=== PATIENT | female | born 1995 | race Caucasian/White ===

== ENCOUNTER 2025-07-17 19:16 | Observation (INO) ==
[2025-07-17 19:39] LABS: Hematocrit (blood only) 40.5 % (37.0-47.0); Hemoglobin 13.6 g/dL (12.0-16.0); Immature Granulocytes # (auto) 0.03 K/uL (0.01-0.20); Immature Granulocytes % (auto) 0.3 %; Mean Corpuscular Hemoglobin 32.5 pg (25.0-34.0); Mean Corpuscular Volume 96.9 fL (80.0-100.0); Platelet Count 316 K/uL (130-400); RDW Standard Deviation 45.4 fL (36.4-46.3); Red Blood Count 4.18 M/uL (4.20-5.40); White Blood Count 11.05 K/ul (4.8-10.8)
[2025-07-17 19:55] LABS: Alanine Aminotransferase 25.0 U/L (7-52); Albumin Globulin Ratio 1.8 (0.9-2); Albumin Level 4.5 gm/dl (3.4-5.0); Alkaline Phosphatase 52.0 U/L (34-104); Anion Gap 7.0 (3-11); Bilirubin,Total 0.6 mg/dl (0.2-1.0); Blood Urea Nitrogen 9.0 mg/dl (6-23); Calcium 9.4 mg/dl (8.6-10.3); Carbon Dioxide 29.0 mmol/L (21-32); Chloride 103.0 mmol/L (98-107); Creatinine Clr Calc Pharmacy 96.3 ml/min; Globulin 2.5 gm/dl (2.5-4.0); Glucose 90.0 mg/dl (70-99(Fasting)); Potassium 3.7 mmol/L (3.5-5.1); Sodium 139.0 mmol/L (136-145); Total Protein 7.0 gm/dl (6.0-8.3)
[2025-07-17 22:06] LABS: Creatine Kinase 75.0 U/L (26-192)
[2025-07-17] MEDS: HYDROCORTISONE SOD SUCCINATE 100 MG/2 ML VIAL IV STA (22:06)
[2025-07-17 22:12] LABS: Pregnancy Test, Serum Negative (Negative)
[2025-07-17 22:21] LABS: Thyroid Stimulating Hormone 2.178 uIu/ml (0.300-4.500)
[2025-07-17 22:31] LABS: Appearance Urine Clear (Clear); Glucose Urine UA Negative (Negative)
--- NOTE | 2025-07-17 23:13 | Emergency Department Note ---
History of Present Illness General Chief complaint: Leg Weakness, Bilateral Stated complaint: LEG WEAKNESS (BILATERAL), MUSCLE JERKS, SINCE YEST Time Seen by Provider: 07/17/25 21:24 History of Present Illness Maximum Pain Intensity: 8 This 29-year-old female with a past medical history of Iron (Fe) deficiency anemia, Vitamin D deficiency, Depression with anxiety, Chronic pain, Fibromyalgia, Raynaud disease, ADHD, Borderline personality disorder Vitamin B12 deficiency, Isolated ACTH deficiency, Secondary adrenal insufficiency, Hypothyroidism, Reactive hypoglycemia, Fatigue presents ER complaining of low back pain bilateral leg weakness for the past week. Symptoms have come and gone. She went to [facility] with no clear etiology for her symptoms. She last took a stress dose of her steroids 1 week ago. Nothing today for the acute onset of symptoms. Patient denies trauma, fever, chills, flulike illness. Home Medications Medication Instructions Recorded Confirmed Type ropinirole 2 mg tablet 2 mg PO BID 10/05/23 01/28/25 History tizanidine 4 mg capsule 8 mg PO HS 10/05/23 01/28/25 History methylphenidate HCl 20 mg tablet 20 mg PO TID 10/13/23 01/28/25 History lamotrigine 150 mg tablet 150 mg PO DAILY 01/05/24 01/28/25 History (Lamictal) 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,general pediatrician,cont #1 ea 01/31/24 01/28/25 Rx (FreeStyle Janette 3 [place]) dicyclomine 10 mg capsule 10 mg PO BID PRN abdominal pain 02/20/24 01/28/25 History medical marijuana .Route 02/20/24 01/28/25 History ondansetron HCl 8 mg tablet 8 mg PO TID PRN nausea and vomiting 02/20/24 01/28/25 History polydextrose 1.5 gram chewable g PO 02/20/24 01/28/25 History tablet (Childrens Fiber Gummy Bear) sennosides 8.6 mg capsule (senna) 8.6 mg PO BID PRN constipation 02/20/24 01/28/25 History cyanocobalamin (vitamin B-12) 1,000 mcg subcut .COMPLEX #1 ea 04/30/24 01/28/25 Rx 1,000 mcg/mL injection kit gabapentin 800 mg tablet 800 mg PO TID #90 tabs 04/30/24 01/28/25 Rx fluticasone propionate 50 See Rx Instructions .Route 05/23/24 01/28/25 Rx mcg/actuation nasal .COMPLEX #48 mL spray,suspension docusate sodium 100 mg capsule See Rx Instructions .Route 06/17/24 01/28/25 Rx .COMPLEX #30 caps cariprazine 1.5 mg capsule 3 mg PO DAILY 07/12/24 01/28/25 History (Vraylar) lorazepam 0.5 mg tablet (Ativan) 1 mg (2 x 0.5 mg) PO ONCE PRN 07/18/24 01/28/25 Rx anxiety #2 tabs venlafaxine 150 mg 100 mg PO DAILY 09/06/24 01/28/25 History capsule,extended release 24 hr (Effexor XR) chlorpromazine 25 mg tablet 25 mg PO Q6H PRN 11/27/24 01/28/25 History FreeStyle Janette 3 Sensor #6 ea 12/26/24 01/28/25 Rx (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 sensor) glucagon 3 mg/actuation nasal spray 3 mg intranasal ONCE #2 ea 12/26/24 01/28/25 Rx levothyroxine 50 mcg tablet 50 mcg PO DAILY #30 tabs 05/20/25 Rx prednisone 5 mg tablet 5 mg PO DAILY #30 tabs 06/13/25 Rx Allergies Allergy/AdvReac Type Severity Reaction Status Date / Time buspirone [From BuSpar] Allergy Verified 01/28/25 11:52 celecoxib [From Celebrex] Allergy Verified 01/28/25 11:52 duloxetine [From Cymbalta] Allergy Verified 01/28/25 11:52 polymyxin B [From Polytrim] Allergy Verified 01/28/25 11:52 quetiapine [From Seroquel] Allergy Verified 01/28/25 11:52 trazodone Allergy Verified 01/28/25 11:52 trimethoprim [From Polytrim] Allergy Verified 01/28/25 11:52 varenicline [From Chantix] Allergy Verified 01/28/25 11:52 Sulfa (Sulfonamide AdvReac Unknown Redness of Verified 01/28/25 11:52 Antibiotics) Skin Past Med/Surg History Problem List (Updated 07/18/25 @ 03:43 by Irma Sanchez PA-C) Bilateral leg numbness (Acute) Bilateral leg weakness (Acute) Acute bilateral low back pain (Acute) Iron (Fe) deficiency anemia Vitamin D deficiency Depression with anxiety Chronic pain Fibromyalgia Raynaud disease ADHD Borderline personality disorder Vitamin B12 deficiency Isolated ACTH deficiency Secondary adrenal insufficiency Hypothyroidism Reactive hypoglycemia Fatigue Medical History (Updated 07/18/25 @ 03:43 by Irma Sanchez PA-C) History of gastrectomy Surgical History (Updated 02/20/24 @ 14:44 by DEVORAH Barillas) S/P total gastrectomy and Gurwinder-en-Y esophagojejunal anastomosis S/P cholecystectomy S/P tonsillectomy and adenoidectomy S/P wisdom tooth extraction History of breast reconstruction History of bilateral mastectomy Family History Mother Breast cancer Stomach cancer Denies family history of Ovarian cancer Prostate cancer Myocardial infarction Colorectal cancer Social History (Updated 02/20/24 @ 14:47 by DEVORAH Barillas) Smoking Status: Current every day smoker Tobacco Type: E-cigarettes / Vaping Age Started Using Tobacco: 14; Age Quit Using Tobacco: 23; Second Hand Exposure: Yes; Do You Dip or Chew Tobacco: No; Hx Alcohol Use: Yes Alcohol type: wine Alcohol type Comment: social Alcohol Intake Frequency: Monthly or Less Hx Substance Use: Yes Prescribed Medications: Marijuana Preferred Language: [place] Communication Ability: Effective Visual Impairment: No Limitations Hearing Ability: Normal marital status: Single Current Living Situation: Parent current occupational status: unemployed Feels Safe at Home: Yes Childhood Exposure to Second-Hand Smoke: No Diet: regular caffeine: Yes Dental Care, Regularly: Yes Physical Activity Frequency: Does not Exercise Seatbelt Use: always Sunscreen Use: Yes Review of Systems A total of 10 systems reviewed and were otherwise negative Physical Exam Vital Signs Vital Signs - 24 hr 07/17/25 19:20 07/17/25 20:30 07/17/25 21:06 Temperature 36.3 C L Temperature Source Temporal Artery Scan Pulse Rate 77 67 Pulse Rate [Apical] 62 Pulse Rate from SpO2 Sensor Pulse Rhythm [Apical] Regular Pulse Strength [Apical] Normal Respiratory Rate 16 24 Respiratory Effort / Characteristics Non-Labored Spontaneous Non-Labored Spontaneous Respiratory Depth Normal Normal Respiratory Pattern Regular Regular Blood Pressure 132/88 Blood Pressure [Left Arm] 116/85 Blood Pressure Mean 102 Blood Pressure Mean [Left Arm] 95 Blood Pressure Position [Left Arm] Pulse Oximetry 98 99 Oxygen Delivery Method Room Air Room Air Sepsis Recent Fever Within 48 Hours No Sepsis New/Unexplained Change in Mental Status N/A Sepsis Action Taken by Nursing No Action Required 07/17/25 23:00 07/18/25 00:30 07/18/25 00:30 Temperature Temperature Source Pulse Rate 82 Pulse Rate [Apical] 68 79 Pulse Rate from SpO2 Sensor Pulse Rhythm [Apical] Pulse Strength [Apical] Respiratory Rate 23 17 Respiratory Effort / Characteristics Non-Labored Spontaneous Non-Labored Spontaneous Respiratory Depth Respiratory Pattern Regular Regular Blood Pressure Blood Pressure [Left Arm] 99/74 L 133/85 Blood Pressure Mean Blood Pressure Mean [Left Arm] 82 101 Blood Pressure Position [Left Arm] Lying Lying Pulse Oximetry 98 99 Oxygen Delivery Method Room Air Room Air Sepsis Recent Fever Within 48 Hours Sepsis New/Unexplained Change in Mental Status Sepsis Action Taken by Nursing 07/18/25 01:00 07/18/25 02:00 Temperature Temperature Source Pulse Rate 107 H Pulse Rate [Apical] 98 H Pulse Rate from SpO2 Sensor 120 H Pulse Rhythm [Apical] Pulse Strength [Apical] Respiratory Rate 22 23 Respiratory Effort / Characteristics Non-Labored Spontaneous Respiratory Depth Respiratory Pattern Regular Blood Pressure 127/94 Blood Pressure [Left Arm] 138/88 Blood Pressure Mean 105 Blood Pressure Mean [Left Arm] 104 Blood Pressure Position [Left Arm] Lying Pulse Oximetry 94 94 Oxygen Delivery Method Room Air Room Air Sepsis Recent Fever Within 48 Hours Sepsis New/Unexplained Change in Mental Status Sepsis Action Taken by Nursing VITALS: Vitals are noted on the nurse's note and reviewed by myself. Vital signs stable. GENERAL: Pleasant female, in no acute distress, nondiaphoretic, well-developed well-nourished. SKIN: Capillary reflex less than 2 seconds. HEENT: Normocephalic. PERRLA. EOMI. Nares patent. Mucous membranes moist. Neck is supple without nuchal rigidity. HEART: Regular rate and rhythm LUNGS: Clear to auscultation bilaterally without wheezes, rales or rhonchi. No retractions or accessory muscle use. ABDOMEN: Positive bowel sounds x 4. Normal tympanic percussion. Soft, nontender, without masses or organomegaly. Emerson sign negative. No guarding or rebound tenderness. no CVA tenderness MUSCULOSKELETAL: No gross musculoskeletal defects. No thoracic or lumbar tenderness. 5 out of 5 strength throughout. Patient plantarflex and dorsiflex. Sensation is intact. NEURO: Patient was alert and oriented to person place and time. No focal neurological deficits. Course Administered Medications Discontinued Medications Droperidol (Droperidol 5 Mg/2 Ml Vial) 1.25 mg IV ONE STA Stop: 07/18/25 00:55 Last Admin: 07/18/25 01:34 Dose: Not Given Documented By: CALLY Gadobutrol (Gadobutrol 65ml Vial) 5.5 ml IV ONCE ONE Stop: 07/18/25 03:44 Last Admin: 07/18/25 03:43 Dose: 5.5 ml Documented By: DESTINEE Hydrocortisone Sodium Succinate (Hydrocortisone Sod Succinate 100 Mg/2 Ml Vial) 100 mg IV NOW STA Stop: 07/17/25 21:48 Last Admin: 07/17/25 22:06 Dose: 100 mg Documented By: monica Acetaminophen (Ofirmev) 1,000 mg in 100 mls @ 400 mls/hr IV NOW STA Stop: 07/18/25 01:33 Last Infusion: 07/18/25 01:55 Dose: Infused Documented By: Admin: 07/18/25 01:31 Dose: 400 mls/hr Documented By: CALLY Lorazepam (Lorazepam 1 Mg/1 Ml Syr Ed Inj Use) 1 mg IV ONE STA Stop: 07/17/25 23:04 Last Admin: 07/17/25 23:43 Dose: 1 mg Documented By: CALLY Lorazepam (Lorazepam 1 Mg/1 Ml Syr Ed Inj Use) 1 mg IV ONE STA Stop: 07/18/25 00:32 Last Admin: 07/18/25 00:42 Dose: 1 mg Documented By: CALLY Morphine Sulfate (Morphine Sulfate 4 Mg/Ml 1 Ml Carp\Vial) 4 mg IV NOW STA Stop: 07/18/25 01:20 Last Admin: 07/18/25 01:31 Dose: 4 mg Documented By: CALLY Medical Decision Making Medical Records Attestation: I reviewed the patient's medical records. Home Medications Current Medication List: was personally reviewed by me Laboratory Data Attestation: I reviewed the patient's lab results. 07/17/25 19:25 07/17/25 19:25 Lab Results 07/17/25 07/17/2525 Range/Units 19:25 19:25 19:25 WBC 11.05 H (4.8-10.8) K/ul RBC 4.18 L (4.20-5.40) M/uL Hgb 13.6 (12.0-16.0) g/dL Hct 40.5 (37.0-47.0) % MCV 96.9 (80.0-100.0) fL MCH 32.5 (25.0-34.0) pg MCHC 33.6 (32.0-36.0) g/dL RDW Std Deviation 45.4 (36.4-46.3) fL RDW Coeff of Estela 12.7 (11.5-14.5) % Plt Count 316 (130-400) K/uL MPV 9.6 (9.4-12.4) fL Immature Gran % (Auto) 0.3 % Neut % (Auto) 60.4 % Lymph % (Auto) 31.9 % [place] % (Auto) 6.2 % Eos % (Auto) 0.7 % Baso % (Auto) 0.5 % Neut # (Auto) 6.68 H (1.40-6.50) K/uL Lymph # (Auto) 3.52 H (1.20-3.40) K/uL [place] # (Auto) 0.68 H (0.11-0.59) K/uL Eos # (Auto) 0.08 (0.00-0.50) K/uL Baso # (Auto) 0.06 (0.00-0.20) K/uL Immature Gran # (Auto) 0.03 (0.01-0.20) K/uL Sodium 139 (136-145) mmol/L Potassium 3.7 (3.5-5.1) mmol/L Chloride 103 (98-107) mmol/L Carbon Dioxide 29 (21-32) mmol/L Anion Gap 7 (3-11) BUN 9 (6-23) mg/dl Creatinine 0.75 (0.6-1.2) mg/dl Est Cr Clr Drug Dosing 96.3 ml/min eGFR 111.14 BUN/Creatinine Ratio 12.0 (10-20) Glucose 90 (70-99(Fasting)) mg/dl Calcium 9.4 (8.6-10.3) mg/dl Total Bilirubin 0.6 (0.2-1.0) mg/dl AST 18 (13-39) U/L ALT 25 (7-52) U/L Alkaline Phosphatase 52 (34-104) U/L Total Creatine Kinase 75 (26-192) U/L Total Protein 7.0 (6.0-8.3) gm/dl Albumin 4.5 (3.4-5.0) gm/dl Globulin 2.5 (2.5-4.0) gm/dl Albumin/Globulin Ratio 1.8 (0.9-2) TSH 2.178 (0.300-4.500) uIu/ml HCG, Qual Negative (Negative) Urine Color Urine Appearance (Clear) Urine pH (4.5-7.5) Ur Specific [place] (1.000-1.030) Urine Protein (Negative) Urine Glucose (UA) (Negative) Urine Ketones (Negative) Urine Blood (Negative) Urine Nitrite (Negative) Urine Bilirubin (Negative) Urine Urobilinogen (Negative) Ur Leukocyte Esterase (Negative) Urine Comment Anaplasma Smear See Comment Cancelled Babesia Smear See Comment Cancelled Lyme Disease Screen Negative (Negative) 07/17/25 Range/Units 22:13 WBC (4.8-10.8) K/ul RBC (4.20-5.40) M/uL Hgb (12.0-16.0) g/dL Hct (37.0-47.0) % MCV (80.0-100.0) fL MCH (25.0-34.0) pg MCHC (32.0-36.0) g/dL RDW Std Deviation (36.4-46.3) fL RDW Coeff of Estela (11.5-14.5) % Plt Count (130-400) K/uL MPV (9.4-12.4) fL Immature Gran % (Auto) % Neut % (Auto) % Lymph % (Auto) % [place] % (Auto) % Eos % (Auto) % Baso % (Auto) % Neut # (Auto) (1.40-6.50) K/uL Lymph # (Auto) (1.20-3.40) K/uL [place] # (Auto) (0.11-0.59) K/uL Eos # (Auto) (0.00-0.50) K/uL Baso # (Auto) (0.00-0.20) K/uL Immature Gran # (Auto) (0.01-0.20) K/uL Sodium (136-145) mmol/L Potassium (3.5-5.1) mmol/L Chloride (98-107) mmol/L Carbon Dioxide (21-32) mmol/L Anion Gap (3-11) BUN (6-23) mg/dl Creatinine (0.6-1.2) mg/dl Est Cr Clr Drug Dosing ml/min eGFR BUN/Creatinine Ratio (10-20) Glucose (70-99(Fasting)) mg/dl Calcium (8.6-10.3) mg/dl Total Bilirubin (0.2-1.0) mg/dl AST (13-39) U/L ALT (7-52) U/L Alkaline Phosphatase (34-104) U/L Total Creatine Kinase (26-192) U/L Total Protein (6.0-8.3) gm/dl Albumin (3.4-5.0) gm/dl Globulin (2.5-4.0) gm/dl Albumin/Globulin Ratio (0.9-2) TSH (0.300-4.500) uIu/ml HCG, Qual (Negative) Urine Color Yellow Urine Appearance Clear (Clear) Urine pH 7.5 (4.5-7.5) Ur Specific [place] 1.010 (1.000-1.030) Urine Protein Negative (Negative) Urine Glucose (UA) Negative (Negative) Urine Ketones Negative (Negative) Urine Blood Negative (Negative) Urine Nitrite Negative (Negative) Urine Bilirubin Negative (Negative) Urine Urobilinogen Negative (Negative) Ur Leukocyte Esterase Negative (Negative) Urine Comment Anaplasma Smear Babesia Smear Lyme Disease Screen (Negative) Imaging Data Attestation: I personally reviewed and interpreted this imaging study as follows: Radiologist's Impression: Lumbar Spine MRI 07/17/25 21:47 EXAM: MR lumbar spine wo/w con CLINICAL HISTORY: B leg weakness TECHNIQUE: Different pulse sequences were performed in different planes for the lumbar spine with and without contrast. Images were sent through PACs for diagnostic interpretation. COMPARISON: No previous studies are available for comparison. FINDINGS: Vertebral Alignment: Loss of lumbar lordosis. Normal alignment of the lumbar spine without evidence of fracture or malalignment. Marrow signals are normal. Vertebral Bodies and Intervertebral Discs: Normal vertebral body height, no fracture identified. No lytic or sclerotic lesions. Disc desiccation of L3-L4 and L4-L5 intervertebral disc. [id number] analysis: T12-L1: There is no focal disc pathology, spinal canal stenosis, or neural foraminal stenosis. L1-L2: There is no focal disc pathology, spinal canal stenosis, or neural foraminal stenosis. L2-L3: There is no focal disc pathology, spinal canal stenosis, or neural foraminal stenosis. L3-L4: Diffuse disc herniation with left sided propensity along with left foraminal annular tear, causes effacement of left neural foramina and abutting left exiting nerve root. L4-L5: Diffuse disc bulge with central disc protrusion and annular tear. It causes mild effacement of bilateral lateral recesses and neural foramina which indenting ventral thecal sac and indenting bilateral traversing and abutting bilateral exiting nerve root. L5-S1: There is no focal disc pathology, spinal canal stenosis, or neural foraminal stenosis. Spinal Cord and Nerve Roots: Conus medullaris terminates at the L1 level without abnormality. Soft Tissues: Paraspinal soft tissues appear normal . IMPRESSION: L3-L4: Diffuse disc herniation with left sided propensity along with left foraminal annular tear, causes effacement of left neural foramina and abutting left exiting nerve root. L4-L5: Diffuse disc bulge with central disc protrusion and annular tear. It causes mild effacement of bilateral lateral recesses and neural foramina which indenting ventral thecal sac and indenting bilateral traversing and abutting bilateral exiting nerve root. No other abnormality seen. Electronically signed by Amari Polanco 07-18-2025 04:32 AM MDM Narrative Prior records/ancillary studies reviewed. Triage Nursing notes reviewed. Additional history obtained from nursing. The patient's history was concerning for back pain. Differential diagnosis: Etiologies such as musculoskeletal, disc herniation, fracture, aortic disease, metastatic disease, cord compression, discitis, infection, renal colic, gastrointestinal, acute exacerbation of chronic back pain, sciatica, cauda equina, as well as others were entertained. Physical findings: As above. ER treatment provided: Hydrocortisone was ordered for history of adrenal insufficiency with new onset of leg weakness, Ativan was ordered Morphine and fentanyl were ordered for patient's pain, Tylenol was ordered On reassessment the patient felt better. Diagnostics interpreted by me: The labs Independently Interpreted by myself revealed mild leukocytosis Euthyroid, negative hCG, negative urine Negative Lyme's Imaging studies: Imaging was reviewed and read by radiology Consultation: A consultation was placed with the hospitalist. The case was discussed and diagnostics were reviewed. Patient will be evaluated for admission. This appears to be consistent with low back pain with leg weakness with unclear etiology. Patient was still in moderate amount of pain. Patient has adrenal insufficiency and was given a stress dose for her acute onset of leg weakness. Imaging was reviewed and read by radiology. Stable labs. Medicine was consulted case discussed. She will be evaluated for possible admission. By the evaluation outlined above emergent etiologies such as fracture, aortic disease, metastatic disease, infection, renal colic, gastrointestinal, cord compression, cauda equina, as well as others were deemed relatively unlikely. The pt informed about the findings as listed above. All questions were answered and pleased with the treatment. The chart was completed utilizing [employer] Speech voice recognition software. Grammatical errors, random word insertions, pronoun errors, and incomplete sentences are an occassional consequence of this system due to software limitations, ambient noise, and hardware issues. Any formal questions or concerns about the content, text, or information contained within the body of this dictation should be directly addressed to the physician personnel security assistant for clarification. Impression & Plan Acute bilateral low back pain, Bilateral leg weakness, Bilateral leg numbness Discharge Plan Visit Data Chief Complaint: Leg Weakness, Bilateral Stated Complaint: LEG WEAKNESS (BILATERAL), MUSCLE JERKS, SINCE YEST ED Provider: Dillon Christian ED Midlevel Provider: Irma Sanchez Discharge Problem: Acute bilateral low back pain, Bilateral leg weakness, Bilateral leg numbness Patient Disposition: Being Evaluated by Hospitalist Condition: Good Forms Stand Alone Forms: My Ez[employer] Prescriptions Prescriptions: No Action gabapentin 800 mg tablet 800 mg PO TID Qty: 90 1RF cyanocobalamin (vitamin B-12) 1,000 mcg/mL kit 1,000 mcg subcut .COMPLEX Qty: 1 0RF Rx Instructions: 1,000 mcg subcutaneously MONTHLY; fluticasone propionate 50 mcg/actuation spray,suspension See Rx Instructions .ROUTE .COMPLEX Qty: 48 0RF Dose Instruction: SPRAY 1 SPRAY IN EACH NOSTRIL DAILY Rx Instructions: SPRAY 1 SPRAY IN EACH NOSTRIL DAILY docusate sodium 100 mg capsule See Rx Instructions .ROUTE .COMPLEX Qty: 30 1RF Dose Instruction: TAKE 1 CAPSULE BY MOUTH DAILY NEEDED FOR CONSTIPATION Rx Instructions: TAKE 1 CAPSULE BY MOUTH DAILY NEEDED FOR CONSTIPATION lorazepam [Ativan] 0.5 mg tablet 1 mg PO ONCE PRN (Reason: anxiety) Qty: 2 0RF glucagon 3 mg/actuation spray,non-aerosol 3 mg intranasal ONCE Qty: 2 6RF Rx Instructions: To be used in instances of emergency hypoglycemia. (DME) FreeStyle Janette 3 Sensor Device See Rx Instructions .Route Qty: 6 3RF Rx Instructions: Change sensor every 14 days levothyroxine 50 mcg tablet 50 mcg PO DAILY Qty: 30 4RF Rx Instructions: Take one tablet by mouth 30-45 minutes before any other oral intake. prednisone 5 mg tablet 5 mg PO DAILY Qty: 30 5RF Rx Instructions: Take one tablet by mouth once a day. medical marijuana .Route Rx Instructions: use as directed per pt uses, RSO she adds to food or gummies. senna 8.6 mg capsule 8.6 mg PO BID PRN (Reason: constipation) ondansetron HCl 8 mg tablet 8 mg PO TID PRN (Reason: nausea and vomiting) dicyclomine 10 mg capsule 10 mg PO BID PRN (Reason: abdominal pain) Childrens Fiber Gummy Bear 1.5 gram tablet,chewable PO (DME) FreeStyle Janette 3 [place] Misc See Rx Instructions .Route Qty: 1 3RF Rx Instructions: use to monitor blood sugars daily chlorpromazine 25 mg tablet 25 mg PO Q6H PRN tizanidine 4 mg capsule 8 mg PO HS ropinirole 2 mg tablet 2 mg PO BID methylphenidate HCl 20 mg tablet 20 mg PO TID venlafaxine [Effexor XR] 150 mg capsule,extended release 24hr 100 mg PO DAILY lamotrigine [Lamictal] 150 mg Tablet 150 mg PO DAILY Vraylar 1.5 mg capsule 3 mg PO DAILY Referrals Referrals: Sadi Ray CRNP [Primary Care Provider] - Discharge Problem: Acute bilateral low back pain Qualifiers: Sciatica presence: unspecified whether sciatica present Qualified Code(s): M 54.50 - Low back pain, unspecified
[2025-07-17] MEDS: LORazepam 1 MG/1 ML SYR ED Inj Use IV STA (23:43)
[2025-07-18] MEDS: LORazepam 1 MG/1 ML SYR ED Inj Use IV STA (00:42)
[2025-07-18] MEDS: MoRPHine SULFATE 4 MG/ML 1 ML CARP\\VIAL IV STA (01:31)
[2025-07-18] MEDS: ACETAMINOPHEN 1,000 MG/100 ML VIAL IV STA (01:31)
[2025-07-18] MEDS: DROPERIDOL 5 MG/2 ML VIAL IV STA (01:34)
[2025-07-18] MEDS: GADOBUTROL 65ML VIAL IV ONE (03:43)
--- NOTE | 2025-07-18 04:32 | Magnetic Resonance Report ---
EXAM: MR lumbar spine wo/w con CLINICAL HISTORY: B leg weakness TECHNIQUE: Different pulse sequences were performed in different planes for the lumbar spine with and without contrast. Images were sent through PACs for diagnostic interpretation. COMPARISON: No previous studies are available for comparison. FINDINGS: Vertebral Alignment: Loss of lumbar lordosis. Normal alignment of the lumbar spine without evidence of fracture or malalignment. Marrow signals are normal. Vertebral Bodies and Intervertebral Discs: Normal vertebral body height, no fracture identified. No lytic or sclerotic lesions. Disc desiccation of L3-L4 and L4-L5 intervertebral disc. [id number] analysis: T12-L1: There is no focal disc pathology, spinal canal stenosis, or neural foraminal stenosis. L1-L2: There is no focal disc pathology, spinal canal stenosis, or neural foraminal stenosis. L2-L3: There is no focal disc pathology, spinal canal stenosis, or neural foraminal stenosis. L3-L4: Diffuse disc herniation with left sided propensity along with left foraminal annular tear, causes effacement of left neural foramina and abutting left exiting nerve root. L4-L5: Diffuse disc bulge with central disc protrusion and annular tear. It causes mild effacement of bilateral lateral recesses and neural foramina which indenting ventral thecal sac and indenting bilateral traversing and abutting bilateral exiting nerve root. L5-S1: There is no focal disc pathology, spinal canal stenosis, or neural foraminal stenosis. Spinal Cord and Nerve Roots: Conus medullaris terminates at the L1 level without abnormality. Soft Tissues: Paraspinal soft tissues appear normal . IMPRESSION: L3-L4: Diffuse disc herniation with left sided propensity along with left foraminal annular tear, causes effacement of left neural foramina and abutting left exiting nerve root. L4-L5: Diffuse disc bulge with central disc protrusion and annular tear. It causes mild effacement of bilateral lateral recesses and neural foramina which indenting ventral thecal sac and indenting bilateral traversing and abutting bilateral exiting nerve root. No other abnormality seen. Electronically signed by Amari Polanco 07-18-2025 04:32 AM
--- NOTE | 2025-07-18 05:21 | History & Physical Report ---
Date of Service July 18, 2025 Assessment & Plan (1) Acute back pain: (2) Lumbar disc herniation: Plan 29-year-old female PMHx reactive hypoglycemia, s/p gastrectomy (2020) for gastric cancer (2019) and bilateral mastectomy prophylactically for BCA, hysterectomy (2020), hypothyroidism, secondary adrenal insufficiency, ACTH deficiency, Fibromyalgia, depression, anxiety, ADHD, iron deficiency anemia, and borderline personality disorder presenting for back pain and leg weakness. Labs are grossly unremarkable. Lumbar spine MRI reveals disc bulging/herniation of lumbar spine. #Acute back pain/Lumbar disc herniation Starting ~ 10 days [employer]. Experiencing low back pain, central in nature, as well as pain along bilateral hips with associated burning sensation. Some abnormal sensation saddle region, no loss of control bowel/bladder. No recent trauma. N ever had this happen before. Received hydrocortisone IV in ED, would benefit from dexamethasone from inflammatory perspective however is on chronic prednisone. Admission for further pain control. - CBC without infection; CMP unremarkable; CK WNL; tick panel negative - UA without infection - Lumbar spine MRI L3-L4 diffuse disc herniation w/ L sided propensity w/ L foraminal annular tear, L4-L5 diffuse disc bulge with central disc protrusion and annual tear - Fall precautions - Chlorpromazine prn N/V - Acetaminophen prn fever/pain, morphine prn moderate/severe pain - PT/OT ordered - appreciate assistance - Ortho spine consulted - appreciate input + recs #Psych- Cariprazine, desvenlafaxine, divalproex, gabapentin, lamotrigine, lorazepam, propranolol - continue #Hypothyroidism- Levothyroxine - continue #ADHD- Methylphenidate - continue #Endo/ACTH deficiency- Pyridostigmine; Prednisone - continue #Reactive hypoglycemia- BSG ACHS #Chronic constipation- Docusate prn, MiraLAX prn, prucalopride - continue Dispo: Admit, med/sx VTE Prophylaxis: SCDs This document was dictated utilizing Rapport. Please excuse any grammatical errors that may be secondary to use of this software. Admission and Anticipated Discharge Date Admission Date: 07/18/2025 History of Present Illness Chief Complaint: Back pain Primary Care Provider: NUSRAT Hernandez 29-year-old female PMHx reactive hypoglycemia, s/p gastrectomy for gastric cancer and bilateral mastectomy prophylactically for BCA, hysterectomy (2020), hypothyroidism, secondary adrenal insufficiency, ACTH deficiency, Fibromyalgia, depression, anxiety, ADHD, iron deficiency anemia, and borderline personality disorder presenting for back pain and leg weakness. Patient states that initially 10 days [employer] the symptoms started when she was walking out of [facility] and she felt that her legs completely gave out on her and she was spasming in her upper body, with her arms "flailing". She states she suddenly could not feel her legs and she was unable to get up steps. She did keep a log of her symptoms which are as follows: 07/15/2025 notes her legs are completely numb, flailing occurring at 0900 445 minutes, 1800 for 20 minutes, and 1900 for 45 minutes with pain located at her bilateral hips; 07/16/2025 was 0645, walking to the bathroom felt her knees buckle and her torso felt unstable, felt that her arms and legs were flailing, lasting approximately 15 minutes with lower back pain localized to the left side, 6 out of 10 on the pain scale; 07/16/2025 0706 was sitting then walking to her front door, felt her legs were numb lasted 45 minutes, pain was located in her hips and lower back rating an 8 out of 10 on the pain scale described as stabbing, tried to utilize ibuprofen without relief; 07/16/2020 0956 going to stand up, again legs numb, last until approximately 1030; 07/16/2025 from [id number] was walking and sitting, leg numbness, jerking in her arms and legs, heaviness, constant, sharp pain that was stabbing localized to the left side, 9 out of 10 on the pain scale; 07/16/2025 1500 walking to the kitchen, again legs numb burning sensation present, lower back pain sharp in nature, 8 out of 10 on the pain scale. At present, she is having pain in her bilateral hips, mainly localized to the lower central back. She is continues to have some burning sensation around her hips and slight sensation ch anges in her groin area. No bowel or bladder incontinence. No numbness or tingling down her extremities. She is without additional symptoms to include chest pain, SOB, palpitations, abdominal pain, N/V/D/C, fever/chills, URI symptoms, LUTS, or syncope. She has never had this happen before. Of note, she often times has night sweats when sleeping or napping. ED evaluation reveals CBC leukocytosis 11.05, stable H/H; CMP WNL; CK 75; TSH 2.178; HCG negative; UA negative for infection; tick negative thus far; Lumbar spine MRI L3-4 disc herniation L sided propensity and foraminal annular tear, L4-5 diffuse disc bulge with central disc protrusion and annular tear.; Provided with morphine 4mg IV, lorazepam 1mg IV x 2, hydrocortisone 100mg IV, fentayl 50 mcg IV, droperidol 1.25mg IV, and acetaminophen 1g IV in ED. Please see Dr. Evans's attestation for adjustments/additions to treatment plan. Allergies Allergy/AdvReac Type Severity Reaction Status Date / Time buspirone [From BuSpar] Allergy Verified 01/28/25 11:52 celecoxib [From Celebrex] Allergy Verified 01/28/25 11:52 duloxetine [From Cymbalta] Allergy Verified 01/28/25 11:52 polymyxin B [From Polytrim] Allergy Verified 01/28/25 11:52 quetiapine [From Seroquel] Allergy Verified 01/28/25 11:52 trazodone Allergy Verified 01/28/25 11:52 trimethoprim [From Polytrim] Allergy Verified 01/28/25 11:52 varenicline [From Chantix] Allergy Verified 01/28/25 11:52 Sulfa (Sulfonamide AdvReac Unknown Redness of Verified 01/28/25 11:52 Antibiotics) Skin Home Medications Medication Instructions Recorded Confirmed Type methylphenidate HCl 20 mg tablet 20 mg PO TID 10/13/23 07/18/25 History lamotrigine 150 mg tablet 200 mg PO BID 01/05/24 07/18/25 History (Lamictal) 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,detective captain,cont #1 ea 01/31/24 01/28/25 Rx (FreeStyle Janette [facility] [place]) medical marijuana .Route 02/20/24 01/28/25 History cyanocobalamin (vitamin B-12) 1,000 mcg subcut .COMPLEX #1 ea 04/30/24 07/18/25 Rx 1,000 mcg/mL injection kit gabapentin 800 mg tablet 800 mg PO TID #90 tabs 04/30/24 07/18/25 Rx fluticasone propionate 50 See Rx Instructions .Route 05/23/24 07/18/25 Rx mcg/actuation nasal .COMPLEX #48 mL spray,suspension docusate sodium 100 mg capsule See Rx Instructions .Route 06/17/24 07/18/25 Rx .COMPLEX #30 caps cariprazine 1.5 mg capsule 1.5 mg PO HS 07/12/24 07/18/25 History (Vraylar) chlorpromazine 25 mg tablet 25 mg PO Q6H PRN N/V 11/27/24 07/18/25 History FreeStyle Janette 3 Sensor #6 ea 12/26/24 01/28/25 Rx (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 sensor) glucagon 3 mg/actuation nasal spray 3 mg intranasal ONCE #2 ea 12/26/24 07/18/25 Rx levothyroxine 50 mcg tablet 50 mcg PO DAILY #30 tabs 05/20/25 07/18/25 Rx prednisone 5 mg tablet 5 mg PO DAILY #30 tabs 06/13/25 07/18/25 Rx clonazepam 1 mg tablet 1 mg TID PRN Anxiety 07/18/25 07/18/25 History desvenlafaxine succinate 100 mg 100 mg PO DAILY 07/18/25 07/18/25 History tablet,extended release 24 hr divalproex 250 mg tablet,delayed 250 mg PO BID 07/18/25 07/18/25 History release linaclotide 145 mcg capsule 145 mcg DAILY 07/18/25 07/18/25 History (Linzess) propranolol 20 mg tablet 20 mg PO TID PRN Anxiety 07/18/25 07/18/25 History prucalopride 2 mg tablet 2 mg PO DAILY 07/18/25 07/18/25 History pyridostigmine bromide 60 mg tablet 60 mg PO DAILY 07/18/25 07/18/25 History tizanidine 4 mg tablet 8 mg BID 07/18/25 07/18/25 History Past Med/Surg History Problem List (Updated 07/19/25 @ 13:48 by Eliot Goodman MD) Narcolepsy and cataplexy Lumbar disc herniation Acute back pain Bilateral leg numbness (Acute) Bilateral leg weakness (Acute) Acute bilateral low back pain (Acute) Iron (Fe) deficiency anemia Vitamin D deficiency Depression with anxiety Chronic pain Fibromyalgia Raynaud disease ADHD Borderline personality disorder Vitamin B12 deficiency Isolated ACTH deficiency Secondary adrenal insufficiency Hypothyroidism Reactive hypoglycemia Fatigue Medical History History of gastrectomy Surgical History S/P total gastrectomy and Gurwinder-en-Y esophagojejunal anastomosis S/P cholecystectomy S/P tonsillectomy and adenoidectomy S/P wisdom tooth extraction History of breast reconstruction History of bilateral mastectomy Family History Mother Breast cancer Stomach cancer Denies family history of Ovarian cancer Prostate cancer Myocardial infarction Colorectal cancer Social History Smoking Status: Current every day smoker Tobacco Type: E-cigarettes / Vaping Age Started Using Tobacco: 14; Age Quit Using Tobacco: 23; Second Hand Exposure: No; Do You Dip or Chew Tobacco: No; Hx Alcohol Use: Yes Alcohol type: wine Alcohol type Comment: social Alcohol Intake Frequency: Monthly or Less Hx Substance Use: Yes Prescribed Medications: Marijuana Last Used Substance: Just Prior to Arrival Last Used Substance Other:: last night prior to hosipitalization Preferred Language: Zambian Communication Ability: Effective Visual Impairment: No Limitations Hearing Ability: Normal Key Ringer Required: No Beliefs That Will Affect Care: None marital status: Single Current Living Situation: Family Current Living Situation Comment: lives home with son current occupational status: unemployed Other Information That Helps Us Care for You: No Feels Safe at Home: Yes Safety Concerns: Feels Safe At This Time Childhood Exposure to Second-Hand Smoke: No Diet: regular caffeine: Yes Dental Care, Regularly: Yes Physical Activity Frequency: Does not Exercise Seatbelt Use: always Sunscreen Use: Yes Assistive Devices: None Review of Systems Review of Systems: All systems reviewed & are unremarkable except as noted in Subjective Physical Exam Physical Exam: General: No acute distress Skin: Warm and dry Head: Normocephalic, atraumatic Eyes: PERRL, conjunctivae clear, sclera non-icteric ENT: External ear and ear canal without swelling; nose atraumatic; good dentition, tongue normal appearance, pharynx normal Neck: Supple, no LAD Cardio: RRR, no M/G/R, S1 and S2 normal Resp: No respiratory distress, Lungs CTA in all lobes bilaterally, no wheezes, rales, or rhonchi Abdomen: Soft, symmetric, nontender; No masses or hepatosplenomegaly; Bowel sounds normoactive MSK: No deformities; pulses palpable and equal; no edema. Neuro: Awake, alert; Sensation intact bilaterally; CN grossly intact; straight leg raise negative bilaterally; mild tenderness to palpation throughout back, no point tenderness Psych: Appropriate mood and affect; good judgement and insight. Results & Data Results & Data Vital Signs (Past 12 Hours) Vital Signs Temp Pulse Pulse Resp BP BP Pulse Ox 07/18/25 02:00 107 H 23 127/94 94 07/18/25 01:00 98 H 22 138/88 94 07/18/25 00:30 79 17 133/85 99 07/18/25 00:30 82 07/17/25 23:00 68 23 99/74 L 98 07/17/25 21:06 62 24 116/85 99 07/17/25 20:30 67 07/17/25 19:20 36.3 C L 77 16 132/88 98 O2 Del Method 07/18/25 02:00 Room Air 07/18/25 01:00 Room Air 07/18/25 00:30 Room Air 07/18/25 00:30 07/17/25 23:00 Room Air 07/17/25 21:06 Room Air 07/17/25 20:30 07/17/25 19:20 Room Air Laboratory Results 07/17/25 07/17/25 07/17/25 22:13 19:25 19:25 WBC RBC Hgb Hct MCV MCH MCHC RDW Std Deviation RDW Coeff of Estela Plt Count MPV Immature Gran % (Auto) Neut % (Auto) Lymph % (Auto) [place] % (Auto) Eos % (Auto) Baso % (Auto) Neut # (Auto) Lymph # (Auto) [place] # (Auto) Eos # (Auto) Baso # (Auto) Immature Gran # (Auto) Sodium Potassium Chloride Carbon Dioxide Anion Gap BUN Creatinine Est Cr Clr Drug Dosing eGFR BUN/Creatinine Ratio Glucose Calcium Total Bilirubin AST ALT Alkaline Phosphatase Total Creatine Kinase Total Protein Albumin Globulin Albumin/Globulin Ratio TSH HCG, Qual Urine Color Yellow Urine Appearance Clear Urine pH 7.5 Ur Specific [place] 1.010 Urine Protein Negative Urine Glucose (UA) Negative Urine Ketones Negative Urine Blood Negative Urine Nitrite Negative Urine Bilirubin Negative Urine Urobilinogen Negative Ur Leukocyte Esterase Negative Urine Comment Anaplasma Smear Cancelled Babesia Smear Cancelled See Comment Lyme Disease Screen Negative 07/17/25 19:25 WBC 11.05 H RBC 4.18 L Hgb 13.6 Hct 40.5 MCV 96.9 MCH 32.5 MCHC 33.6 RDW Std Deviation 45.4 RDW Coeff of Estela 12.7 Plt Count 316 MPV 9.6 Immature Gran % (Auto) 0.3 Neut % (Auto) 60.4 Lymph % (Auto) 31.9 [place] % (Auto) 6.2 Eos % (Auto) 0.7 Baso % (Auto) 0.5 Neut # (Auto) 6.68 H Lymph # (Auto) 3.52 H [place] # (Auto) 0.68 H Eos # (Auto) 0.08 Baso # (Auto) 0.06 Immature Gran # (Auto) 0.03 Sodium 139 Potassium 3.7 Chloride 103 Carbon Dioxide 29 Anion Gap 7 BUN 9 Creatinine 0.75 Est Cr Clr Drug Dosing 96.3 eGFR 111.14 BUN/Creatinine Ratio 12.0 Glucose 90 Calcium 9.4 Total Bilirubin 0.6 AST 18 ALT 25 Alkaline Phosphatase 52 Total Creatine Kinase 75 Total Protein 7.0 Albumin 4.5 Globulin 2.5 Albumin/Globulin Ratio 1.8 TSH 2.178 HCG, Qual Negative Urine Color Urine Appearance Urine pH Ur Specific [place] Urine Protein Urine Glucose (UA) Urine Ketones Urine Blood Urine Nitrite Urine Bilirubin Urine Urobilinogen Ur Leukocyte Esterase Urine Comment Anaplasma Smear See Comment Babesia Smear Lyme Disease Screen Diagnostic Findings Lumbar Spine MRI 07/17/25 21:47 EXAM: MR lumbar spine wo/w con CLINICAL HISTORY: B leg weakness TECHNIQUE: Different pulse sequences were performed in different planes for the lumbar spine with and without contrast. Images were sent through PACs for diagnostic interpretation. COMPARISON: No previous studies are available for comparison. FINDINGS: Vertebral Alignment: Loss of lumbar lordosis. Normal alignment of the lumbar spine without evidence of fracture or malalignment. Marrow signals are normal. Vertebral Bodies and Intervertebral Discs: Normal vertebral body height, no fracture identified. No lytic or sclerotic lesions. Disc desiccation of L3-L4 and L4-L5 intervertebral disc. [id number] analysis: T12-L1: There is no focal disc pathology, spinal canal stenosis, or neural foraminal stenosis. L1-L2: There is no focal disc pathology, spinal canal stenosis, or neural foraminal stenosis. L2-L3: There is no focal disc pathology, spinal canal stenosis, or neural foraminal stenosis. L3-L4: Diffuse disc herniation with left sided propensity along with left foraminal annular tear, causes effacement of left neural foramina and abutting left exiting nerve root. L4-L5: Diffuse disc bulge with central disc protrusion and annular tear. It causes mild effacement of bilateral lateral recesses and neural foramina which indenting ventral thecal sac and indenting bilateral traversing and abutting bilateral exiting nerve root. L5-S1: There is no focal disc pathology, spinal canal stenosis, or neural foraminal stenosis. Spinal Cord and Nerve Roots: Conus medullaris terminates at the L1 level without abnormality. Soft Tissues: Paraspinal soft tissues appear normal . IMPRESSION: L3-L4: Diffuse disc herniation with left sided propensity along with left foraminal annular tear, causes effacement of left neural foramina and abutting left exiting nerve root. L4-L5: Diffuse disc bulge with central disc protrusion and annular tear. It causes mild effacement of bilateral lateral recesses and neural foramina which indenting ventral thecal sac and indenting bilateral traversing and abutting bilateral exiting nerve root. No other abnormality seen. Electronically signed by Amari Polanco 07-18-2025 04:32 AM Medications Administered Morphine 4mg IV Lorazepam 1mg IV x 2 Hydrocortison3 100mg IV Fentanyl 50 mcg Droperidol 1.25mg IV Acetaminophen 1g IV Code Status & VTE Plan Code Status Full Supervising Physician Co-Signing Physician Notes Attending addendum: I have physically seen this patient, have supervised the RAPHAEL's activities, and agree with the H&P unless as otherwise noted. Assessment and Plan: The patient is a 29-year-old female with past medical history including reactive hypoglycemia, status post gastrectomy 2020 for gastric cancer in 2019, bilateral mastectomy prophylactic to [employer] WORK[employer], hysterectomy 2020, hypothyroidism, secondary renal insufficiency, ACTH deficiency, fibromyalgia, depression and anxiety, ADHD, iron deficiency anemia, and borderline personality disorder. She presents to the emergency department with back pain and leg weakness. Lumbar spine MRI with bulging herniation of disks. Acute low back pain/lumbar disc bulging herniation with bulging- Pain began about 10 days prior to arrival. Beginning as central back pain, then extending to bilateral hips with burning sensation. No loss of bowel or bladder control. Status post hydrocortisone 100 mg IV in ED Placed on dexamethasone 10 mg IV now, then 6 mg IV every morning MRI of lumbar spine shows L3-L4 diffuse disc herniation with left-sided propensity with left foraminal annular tear, L4-L5 diffuse disc bulge with central disc retrusion and annular tear Fall precautions Acetaminophen 1 g IV every 8 hours as needed for mild pain or fever Morphine 4 mg IV every 3 hours as needed for moderate to severe pain Will get PT OT/after assessment by orthopedic surgery Consult orthospine Psychiatric/ADHD- Continue cariprazine, desvenlafaxine, divalproex, gabapentin, lamotrigine, lorazepam, propranolol, and methylphenidate. Hypothyroidism- Continue levothyroxine ACTH deficiency- Continue pyridostigmine and prednisone Remaining orders and notations as noted PG Care Time/CCT Total # of Minutes Spent Total Time Spent with Patient: Total time spent is greater than 50% in coordination of care (as documented) at patient's floor/unit and/or counseling patient: Coding Level of Care Code 58855 INT INP/OBS CARE MIN Diagnoses Acute back pain M54.9 Lumbar disc herniation M51.26
[2025-07-18] MEDS ORDERED: ACETAMINOPHEN 500 MG TAB PO PRN (06:19)
[2025-07-18] MEDS: MoRPHine SULFATE 4 MG/ML 1 ML CARP\\VIAL IV PRN (07:12)
[2025-07-18] MEDS ORDERED: MELATONIN 3 MG TAB PO PRN (09:12)
[2025-07-18] MEDS ORDERED: LORazepam 1 MG TAB PO PRN (09:12)
[2025-07-18] MEDS: POLYETHYLENE (MIRALAX) 17 GM PACK PO PRN (10:18)
[2025-07-18] MEDS: DOCUSATE SODIUM 100 MG CAP PO PRN (10:18)
[2025-07-18] MEDS: GABAPENTIN 800 MG TAB PO SCH (10:19)
[2025-07-18] MEDS: PROPRANOLOL HCL 20 MG TAB PO SCH (10:19)
[2025-07-18] MEDS: DIVALPROEX DELAY RELEASE 250 MG TABEC PO SCH (10:20)
[2025-07-18] MEDS ORDERED: INFLUENZA VACC TS2025-26(6m+)/PF (IIV3) 0.5mL Syr IM ONE (11:10)
[2025-07-18] MEDS: CARIPRAZINE HCL 1.5 MG CAP PO SCH ×2 (11:23→21:32)
[2025-07-18] MEDS ORDERED: Nursing to Pharmacy Communication SCH ×2 (11:30→16:45)
[2025-07-18] MEDS: METHYLPHENIDATE HCL 10 MG TABLET PO SCH ×2 (11:42→16:51)
[2025-07-18] MEDS: lamoTRIgine 100 MG TAB PO SCH (11:42)
[2025-07-18] MEDS: clonazePAM 1 MG TAB PO PRN (11:46)
--- NOTE | 2025-07-18 12:16 | History & Physical Bridge Note ---
Date of Service July 18, 2025 History & Physical Bridge Note I have examined the patient, reviewed the History & Physical and in the interval since the performance of the History & Physical I have noted the following changes of clinical significance: Patient admitted with intractable back pain x13 days. Has a significant psych history on multiple high dose psychiatric medications, also reported follows with pain management, has a h/o adrenal insufficiency, ACTH deficiency on chronic prednisone therapy and pyridostigmine. She was seen this AM while in the ER waiting a bed on the floor. She reports that her pain does not follow any specific pattern. She has severe sharp low back pain that wraps around her hips and is associated with lower extremity "weakness" but she reports that her legs give out and they aren't numb, they just feel like "nothing." She is awaiting orthospine evaluation. Has been seen at another facility without any significant findings on her work up. She is currently receiving IV Morphine 2-4mg q3 prn pain scale (as ordered by admitting team), pt continues to endorse 8/10 pain on the scale one hour after 4mg of IV Morphine despite appearing comfortable on rounds. She is requesting Dilaudid as she states that this seems to work "best for her." Tylenol is not effective. On examination, she is hemodynamically stable, heart is RRR, lungs are clear. She appears comfortable and is cooperative. No tenderness elicited to palpation of spinous processes. She is able to move around in bed w/o complaints. No LE edema. Sensation and motor is intact. Pulses +2/4. No loss of bowel or bladder control. Lumbar MRI on 07/17 indicates L3-L4 with diffuse disc herniation with left foraminal annular tear and L4-L5 diffuse disc bulge with central disc protrusion and annular tear. Await further recommendations from Dr. Abbasi. Appreciate his assistance. Supervising Physician Co-Signing Physician Notes I did not see or examine the patient. I independently reviewed the labs, imaging, problem list, medication list, past medical history and family history. I verified all moreno points and agree with Rosette Mason PA-C with the following exceptions and/or additions: None
[2025-07-18] MEDS: KETOROLAC TROMETHAMINE 15 MG/ML VIAL IV PRN (15:42)
[2025-07-18] MEDS: PROPRANOLOL HCL 20 MG TAB PO PRN (16:50)
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
[2025-07-19] MEDS: ONDANSETRON INJ 2 MG/ML 2 ML VIAL IV PRN (01:33)
[2025-07-19 03:24] LABS: Amphetamines+Metham, Urine Neg (Neg); MDMA (Ecstacy), Urine Neg (Neg); Marijuana, Urine Pos (Neg)
[2025-07-19] MEDS: LEVOTHYROXINE SODIUM 50 MCG TABLET PO SCH (05:40)
[2025-07-19] MEDS: MoRPHine SULFATE 2 MG/ML CARP IV PRN (08:07)
--- NOTE | 2025-07-19 09:18 | Orthopedic Consultation ---
Date of Consultation July 19, 2025 Assessment & Plan (1) Acute back pain: Assessment back pain. Plan at this time in length discussion with the patient reviewing MRI results and clinical course. This time she does have some modest disc changes on her MRI but not severe in nature certainly not surgical in nature. Pain management is outlined a very reasonable plan and she can follow- up with them on an outpatient basis. I will have her undergo a course of physical therapy today and hopefully she can be discharged home. History of Present Illness Reason for Consultation: Bilateral leg pain and numbness Attending Physician: Eliot Goodman MD History of Present Illness This is a 21-year-old female with a history of back pain and intermittent leg numbness and weakness. She states this happens rarely but sometimes once a month. She denies any precipitating event. Started on multiple injections in the past without any long-term relief. This morning she is quite comfortable denies any weakness in her legs. Has some numbness in her feet but no dense numbness in her legs. She denies any thoracic discomfort. She only has pain in the lumbar region. Allergies Allergy/AdvReac Type Severity Reaction Status Date / Time buspirone [From BuSpar] Allergy Verified 01/28/25 11:52 celecoxib [From Celebrex] Allergy Verified 01/28/25 11:52 duloxetine [From Cymbalta] Allergy Verified 01/28/25 11:52 polymyxin B [From Polytrim] Allergy Verified 01/28/25 11:52 quetiapine [From Seroquel] Allergy Verified 01/28/25 11:52 trazodone Allergy Verified 01/28/25 11:52 trimethoprim [From Polytrim] Allergy Verified 01/28/25 11:52 varenicline [From Chantix] Allergy Verified 01/28/25 11:52 Sulfa (Sulfonamide AdvReac Unknown Redness of Verified 01/28/25 11:52 Antibiotics) Skin Home Medications Medication Instructions Recorded Confirmed Type methylphenidate HCl 20 mg tablet 20 mg PO TID 10/13/23 07/18/25 History lamotrigine 150 mg tablet 200 mg PO BID 01/05/24 07/18/25 History (Lamictal) 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,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,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 ea 01/31/24 01/28/25 Rx (FreeStyle Janette 3 [place]) medical marijuana .Route 02/20/24 01/28/25 History cyanocobalamin (vitamin B-12) 1,000 mcg subcut .COMPLEX #1 ea 04/30/24 07/18/25 Rx 1,000 mcg/mL injection kit gabapentin 800 mg tablet 800 mg PO TID #90 tabs 04/30/24 07/18/25 Rx fluticasone propionate 50 See Rx Instructions .Route 05/23/24 07/18/25 Rx mcg/actuation nasal .COMPLEX #48 mL spray,suspension docusate sodium 100 mg capsule See Rx Instructions .Route 06/17/24 07/18/25 Rx .COMPLEX #30 caps cariprazine 1.5 mg capsule 1.5 mg PO HS 07/12/24 07/18/25 History (Vraylar) chlorpromazine 25 mg tablet 25 mg PO Q6H PRN N/V 11/27/24 07/18/25 History FreeStyle Janette 3 Sensor #6 ea 12/26/24 01/28/25 Rx (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 sensor) glucagon 3 mg/actuation nasal spray 3 mg intranasal ONCE #2 ea 12/26/24 07/18/25 Rx levothyroxine 50 mcg tablet 50 mcg PO DAILY #30 tabs 05/20/25 07/18/25 Rx prednisone 5 mg tablet 5 mg PO DAILY #30 tabs 06/13/25 07/18/25 Rx clonazepam 1 mg tablet 1 mg TID PRN Anxiety 07/18/25 07/18/25 History desvenlafaxine succinate 100 mg 100 mg PO DAILY 07/18/25 07/18/25 History tablet,extended release 24 hr divalproex 250 mg tablet,delayed 250 mg PO BID 07/18/25 07/18/25 History release linaclotide 145 mcg capsule 145 mcg DAILY 07/18/25 07/18/25 History (Linzess) propranolol 20 mg tablet 20 mg PO TID PRN Anxiety 07/18/25 07/18/25 History prucalopride 2 mg tablet 2 mg PO DAILY 07/18/25 07/18/25 History pyridostigmine bromide 60 mg tablet 60 mg PO DAILY 07/18/25 07/18/25 History tizanidine 4 mg tablet 8 mg BID 07/18/25 07/18/25 History Patient History Medical History History of gastrectomy Surgical History S/P total gastrectomy and Gurwinder-en-Y esophagojejunal anastomosis S/P cholecystectomy S/P tonsillectomy and adenoidectomy S/P wisdom tooth extraction History of breast reconstruction History of bilateral mastectomy Family History Mother Breast cancer Stomach cancer Denies family history of Ovarian cancer Prostate cancer Myocardial infarction Colorectal cancer Social History Smoking Status: Current every day smoker Tobacco Type: E-cigarettes / Vaping Age Started Using Tobacco: 14; Age Quit Using Tobacco: 23; Second Hand Exposure: No; Do You Dip or Chew Tobacco: No; Hx Alcohol Use: Yes Alcohol type: wine Alcohol type Comment: social Alcohol Intake Frequency: Monthly or Less Hx Substance Use: Yes Prescribed Medications: Marijuana Last Used Substance: Just Prior to Arrival Last Used Substance Other:: last night prior to hosipitalization Preferred Language: Setswana Communication Ability: Effective Visual Impairment: No Limitations Hearing Ability: Normal Economic 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 She is alert and oriented. She appears quite comfortable. She has no pain to palpation or percussion of the thoracolumbar spine. Reasonable strength testing lower extremities. Results & Data Vital Signs (Past 12 Hours) Vital Signs Temp Pulse Pulse Resp BP Pulse Ox O2 Del Method 07/19/25 08:13 36.8 C 69 18 109/74 93 Room Air 07/19/25 03:47 36.4 C L 63 20 96/62 L 96 Room Air 07/19/25 02:09 61 104/59 L 07/19/25 01:33 36.3 C L 52 L 20 86/52 L 98 Room Air 07/18/25 21:52 44 L
[2025-07-19] MEDS: VENLAFAXINE HCL XR 75 MG CAPXR PO SCH (09:23)
[2025-07-19 11:25] VITALS: TEMP 98.4
[2025-07-19 11:36] VITALS: RESP 18
[2025-07-19 12:53] VITALS: BP 120/66; PULSE 78; O2SAT 93
--- NOTE | 2025-07-19 13:49 | Discharge Summary ---
Discharge Summary Date of Service July 19, 2025 Principal Dx & Hospital Course #1 = Principal Diagnosis (1) Acute back pain: (2) Lumbar disc herniation: (3) Narcolepsy and cataplexy: Kari Lopez is a 29 year old female admitted to [facility] from July 18 - 2024 due to back pain and intermittent leg weakness. On review of pain management and orthopedic spine surgery no recommendations were recommended to her pain regimen. She will be followed up in clinic by pain management. She was noted to have several episodes of sudden sleep attacks during her hospitalization consistent with narcolepsy - this was likely made worse during her hospitalization due to tizanidine given in the morning (she reported only taking this at night at home) and morphine (advise avoiding opiate pain medications as much as possible in the future). Given her suspected narcolepsy I suspect her intermittent leg weakness is possibly cataplexy - this can be triggered by strong emotions but are exacerbated by sedating medications and I would advise trying to reduce these as able with her outpatient physicians including tizanidine, clonazepam and gabapentin. 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 Recommend referral with sleep medicine for further assessment and management of narcolepsy and cataplexy. Notes For Next Care Provider Refer to sleep medicine Consider reduction in medications that can exacerbate narcolepsy Medication Changes From Visit No changes to her home medications Admission HPI Per Admitting Provider 29-year-old female PMHx reactive hypoglycemia, s/p gastrectomy for gastric cancer and bilateral mastectomy prophylactically for BCA, hysterectomy (2020), hypothyroidism, secondary adrenal insufficiency, ACTH deficiency, Fibromyalgia, depression, anxiety, ADHD, iron deficiency anemia, and borderline personality disorder presenting for back pain and leg weakness. Patient states that initially 10 days [employer] the symptoms started when she was walking out of [employer] and she felt that her legs completely gave out on her and she was spasming in her upper body, with her arms "flailing". She states she suddenly could not feel her legs and she was unable to get up steps. She did keep a log of her symptoms which are as follows: 07/15/2025 notes her legs are completely numb, flailing occurring at 0900 445 minutes, 1800 for 20 minutes, and 1900 for 45 minutes with pain located at her bilateral hips; 07/16/2025 was 0645, walking to the bathroom felt her knees buckle and her torso felt unstable, felt that her arms and legs were flailing, lasting approximately 15 minutes with lower back pain localized to the left side, 6 out of 10 on the pain scale; 07/16/2025 0706 was sitting then walking to her front door, felt her legs were numb lasted 45 minutes, pain was located in her hips and lower back rating an 8 out of 10 on the pain scale described as stabbing, tried to utilize ibuprofen without relief; 07/16/2020 0956 going to stand up, again legs numb, last until approximately 1030; 07/16/2025 from [id number] was walking and sitting, leg numbness, jerking in her arms and legs, heaviness, constant, sharp pain that was stabbing localized to the left side, 9 out of 10 on the pain scale; 07/16/2025 1500 walking to the kitchen, again legs numb burning sensation present, lower back pain sharp in nature, 8 out of 10 on the pain scale. At present, she is having pain in her bilateral hips, mainly localized to the lower central back. She is continues to have some burning sensation around her hips and slight sensation changes in her groin area. No bowel or bladder incontinence. No numbness or tingling down her extremities. She is without additional symptoms to include chest pain, SOB, palpitations, abdominal pain, N/V/D/C, fever/chills, URI symptoms, LUTS, or syncope. She has never had this happen before. Of note, she often times has night sweats when sleeping or napping. ED evaluation reveals CBC leukocytosis 11.05, stable H/H; CMP WNL; CK 75; TSH 2.178; HCG negative; UA negative for infection; tick negative thus far; Lumbar spine MRI L3-4 disc herniation L sided propensity and foraminal annular tear, L4-5 diffuse disc bulge with central disc protrusion and annular tear.; Provided with morphine 4mg IV, lorazepam 1mg IV x 2, hydrocortisone 100mg IV, fentayl 50 mcg IV, droperidol 1.25mg IV, and acetaminophen 1g IV in ED. Please see Dr. Evans's attestation for adjustments/additions to treatment plan. Discharge Exam Respiratory normal respiratory effort, lungs clear to auscultation Cardiovascular RRR, no murmur, no edema Neurologic moves all extremities and awake; no focal motor deficits Motor/Sensory: no sensory deficit Discharge Plan Discharge Items Patient Disposition: Home - Self-Care Reason For Visit: BACK PAIN, HERNIATED DISCS Discharge Diagnosis: Back pain Intermittent leg weakness Condition on Discharge: Good Activity: Resume your previous activity Non-emergency contact: Primary Care Provider Call non-emergency contact if: you have any medication questions and your symptoms worsen Follow-up/Referrals: Kavin De Paz PA-C [Physician] - (Follow up for back pain) Sadi Ray CRNP [Primary Care Provider] - (Please call your primary care provider to schedule a hospital follow-up appointment within 7-10 days) Diet: Regular Addtl Attending Provider Instructions: You were admitted to [facility] from July 18 - 2024 due to back pain and intermittent leg weakness. On review of pain management and orthopedic spine surgery no recommendations were recommended to your pain regimen. You will be followed up in clinic by pain management. You were noted to have several episodes of sudden sleep attacks during your hospitalization consistent with narcolepsy - this was likely made worse during your hospitalization due to tizanidine given int he morning (you reported only taking this at night at home) and morphine (advise avoiding opiate pain medications as much as possible in the future). Given your suspect narcolepsy I suspect your intermittent leg weakness is due to cataplexy - this can be triggered by strong emotions but are exacerbated by sedating medications and I would advise trying to reduce these with your outpatient physicians including tizanidine, clonazepam and gabapentin. Recommend following up with sleep specialist for further assessment and management of narcolepsy and cataplexy. You are at risk of sudden falls and sleep attacks with these conditions and recommend avoiding putting yourself in positions where you can have serious injury which includes driving, swimming, operating heavy machinery and avoiding stairs. Kind regards, Dr Eliot Goodman Pending Studies at Discharge: No Stand-Alone Forms: [facility], Smoking Cessation Medications and DC Order Prescriptions: Continued gabapentin 800 mg tablet 800 mg PO TID Qty: 90 1RF cyanocobalamin (vitamin B-12) 1,000 mcg/mL kit 1,000 mcg subcut .COMPLEX Qty: 1 0RF Rx Instructions: 1,000 mcg subcutaneously MONTHLY; fluticasone propionate 50 mcg/actuation spray,suspension See Rx Instructions .ROUTE .COMPLEX Qty: 48 0RF Dose Instruction: SPRAY 1 SPRAY IN EACH NOSTRIL DAILY Rx Instructions: SPRAY 1 SPRAY IN EACH NOSTRIL DAILY docusate sodium 100 mg capsule See Rx Instructions .ROUTE .COMPLEX Qty: 30 1RF Dose Instruction: TAKE 1 CAPSULE BY MOUTH DAILY NEEDED FOR CONSTIPATION Rx Instructions: TAKE 1 CAPSULE BY MOUTH DAILY NEEDED FOR CONSTIPATION glucagon 3 mg/actuation spray,non-aerosol 3 mg intranasal ONCE Qty: 2 6RF Rx Instructions: To be used in instances of emergency hypoglycemia. (DME) FreeStyle Janette 3 Sensor Device See Rx Instructions .Route Qty: 6 3RF Rx Instructions: Change sensor every 14 days levothyroxine 50 mcg tablet 50 mcg PO DAILY Qty: 30 4RF Rx Instructions: Take one tablet by mouth 30-45 minutes before any other oral intake. prednisone 5 mg tablet 5 mg PO DAILY Qty: 30 5RF Rx Instructions: Take one tablet by mouth once a day. medical marijuana .Route Rx Instructions: use as directed per pt uses, RSO she adds to food or gummies. (DME) FreeStyle Janette 3 Acosta Misc See Rx Instructions .Route Qty: 1 3RF Rx Instructions: use to monitor blood sugars daily chlorpromazine 25 mg tablet 25 mg PO Q6H PRN (Reason: N/V) methylphenidate HCl 20 mg tablet 20 mg PO TID divalproex 250 mg tablet,delayed release (DR/EC) 250 mg PO BID desvenlafaxine succinate 100 mg tablet extended release 24 hr 100 mg PO DAILY pyridostigmine bromide 60 mg tablet 60 mg PO DAILY propranolol 20 mg tablet 20 mg PO TID PRN (Reason: Anxiety) prucalopride 2 mg tablet 2 mg PO DAILY Linzess 145 mcg capsule 145 mcg DAILY clonazepam 1 mg tablet 1 mg TID PRN (Reason: Anxiety) tizanidine 4 mg tablet 8 mg BID lamotrigine [Lamictal] 150 mg Tablet 200 mg PO BID Vraylar 1.5 mg capsule 1.5 mg PO HS Rx Instructions: at HS Discharge Orders: Discharge Order (Routine); Ordered 07/19/25 Ordered By: Eliot Goodman Admission Data Admit Date/Time: 07/18/25 05:50 Attending Provider: Eliot Goodman Admit Provider: Mauricio Evans Primary Care Provider: Sadi Ray Other Providers: Radha Zapata; Toan Abbasi Other Interventions: Discharge Summary Assessment (RN) Last Done: 07/19/25 14:26 Hospital Stay Data Consultations 07/18/25 04:37 ED Decision to Admit Stat 07/18/25 05:50 Consult Orthopedic Spine Surgery Stat 07/18/25 13:40 Consult Pain Management Routine 07/18/25 18:46 HIM [Consult Health Information Management] Routine 07/19/25 06:56 Consult Behavioral Health Liaison Routine Diagnostic Imagining Performed 07/17/25 21:47 MR lumbar spine wo/w con Stat Pending Results Patient Have Any Pending Studies at Discharge: No Discharge Instructions Given to Patient (Per Discharging Provider) You were admitted to [facility] from July 18 - 2024 due to back pain and intermittent leg weakness. On review of pain management and orthopedic spine surgery no recommendations were recommended to your pain regimen. You will be followed up in clinic by pain management. You were noted to have several episodes of sudden sleep attacks during your hospitalization consistent with narcolepsy - this was likely made worse during your hos pitalization due to tizanidine given int he morning (you reported only taking this at night at home) and morphine (advise avoiding opiate pain medications as much as possible in the future). Given your suspect narcolepsy I suspect your intermittent leg weakness is due to cataplexy - this can be triggered by strong emotions but are exacerbated by sedating medications and I would advise trying to reduce these with your outpatient physicians including tizanidine, clonazepam and gabapentin. Recommend following up with sleep specialist for further assessment and management of narcolepsy and cataplexy. You are at risk of sudden falls and sleep attacks with these conditions and recommend avoiding putting yourself in positions where you can have serious injury which includes driving, swimming, op erating heavy machinery and avoiding stairs. Kind regards, Dr Eliot Goodman Total Time Total Time Spent Total Time Spent (In Minutes): 40 Coding Level of Care Code 47426 INP/OBS DISCH >30 MIN Diagnoses Acute back pain M54.9 Lumbar disc herniation M51.26 Narcolepsy and cataplexy G47.411
[2025-07-19] MEDS ORDERED: GABAPENTIN 800 MG TAB PO SCH (14:00)
[2025-07-19] MEDS: GABAPENTIN 800 MG TAB PO SCH (14:36)
== END 2025-07-19 14:39 | disposition home or self-care (01) | DRG 552 ==
LOC: SUATTDRO → ED 19:16 → EDINP 07-18 05:50 → SUATTDRO 07-18 05:50 → INTOOBSV 07-18 05:50 → 2N 07-18 10:12